=== PATIENT | male | born 1995 ===

== ENCOUNTER 2018-07-23 14:30 | Emergency (ER) | payer BC ==
[2018-07-23 14:54] VITALS: BP 142/76; PULSE 92; RESP 18; TEMP 98.2; O2SAT 98
--- NOTE | 2018-07-23 15:10 | ED PDOC ---
HPI: Male Pain Time Seen by Provider: 07/23/18 14:59 Chief Complaint (Nursing): Male Genitourinary Chief Complaint (Provider): testicle pain History Per: Patient History/Exam Limitations: no limitations Onset/Duration Of Symptoms: Days Current Symptoms Are (Timing): Still Present Additional Complaint(s): Pt. with testicle pain right that was present when pt. woke up at 730am. Pt. with no dysuria, weakness, abd pain, injury. States no issues when he went to bed. Seen at urgent care and sent to the ER. Past Medical History Reviewed: Nursing Documentation, Vital Signs Vital Signs: Last Vital Signs Temp 98.2 F 07/23/18 14:52 Pulse 92 H 07/23/18 14:52 Resp 18 07/23/18 14:52 BP 142/76 07/23/18 14:52 Pulse Ox 98 07/23/18 14:52 Primary Care Provider: DoctorEdmar - Medical History PMH: No Chronic Diseases - Surgical History Surgical History: No Surg Hx - Family History Family History: States: Unknown Family Hx - Social History Alcohol: None Drugs: Denies - Home Medications Home Medications: Ambulatory Orders Medication Instructions Recorded Ibuprofen [Motrin] 600 mg PO TID 7 Days tab 07/23/18 - Allergies Allergies/Adverse Reactions: Allergies Allergy/AdvReac Type Severity Reaction Status Date / Time No Known Allergies Allergy Verified 07/23/18 14:52 Review of Systems ROS Statement: Except As Marked, All Systems Reviewed And Found Negative Genitourinary Male: Positive for: Scrotal Pain Physical Exam - Reviewed Nursing Documentation Reviewed: Yes Vital Signs Reviewed: Yes - Physical Exam Appears: Positive for: Non-toxic, No Acute Distress Head Exam: Positive for: ATRAUMATIC, NORMAL INSPECTION, NORMOCEPHALIC Skin: Positive for: Normal Color, Warm, DRY Cardiovascular/Chest: Positive for: Regular Rate, Rhythm Respiratory: Positive for: CNT, Normal Breath Sounds Gastrointestinal/Abdominal: Positive for: Normal Exam, Soft. Negative for: Tenderness Male Genital Exam: Positive for: other (no penile lesions or tenderness; no scrotal sac erythema; + cremasteric reflex b/l). Negative for: epididymal tenderness, scrotum tenderness (R), scrotum tenderness (L), testicular tenderness (R), testicular tenderness (L) Back: Positive for: Normal Inspection. Negative for: L CVA Tenderness, R CVA Tenderness Neurological/Psych: Positive for: Awake, Alert, Normal Tone - ECG O2 Sat by Pulse Oximetry: 98 - CT Scan/US US Other Rad Studies (CT/US): Read By Radiologist - Progress ED Course And Treament: 1700: Stable. AAOx3. Pain free. Tolerated PO. Fu with pcp. Disposition - Clinical Impression Clinical Impression: Testicle pain - Patient ED Disposition Is Patient to be Admitted: No Counseled Patient/Family Regarding: Studies Performed, Diagnosis, Need For Followup, Rx Given - Disposition Referrals: [facility] [Outside] - 07/26/18 Disposition: Routine/Home Disposition Time: 17:01 Condition: STABLE Additional Instructions: Return if not better in 3 days. Prescriptions: Ibuprofen [Motrin] 600 mg PO TID 7 Days tab Instructions: How to Perform a Testicular Self-Exam Forms: [facility] ED School/Work Excuse
--- NOTE | 2018-07-23 16:25 | US ---
Date of service: 07/23/2018 HISTORY: testicular pain TECHNIQUE: Realtime sonography through the scrotum with color and doppler flow. COMPARISON: None Available. FINDINGS: RIGHT TESTICLE: Measures 2.4 x 3.6 x 5.1 cm. Normal echotexture and flow. RIGHT EPIDIDYMIS: Epididymal head measures 0.7 x 0.9 x 1.3 cm. Simple epididymal cyst 5 x 7 x 5 mm. LEFT TESTICLE: Measures 2.8 x 3.1 x 5.1 cm. Normal echotexture and flow. LEFT EPIDIDYMIS: Epididymal head measures 0.5 x 0.7 x 1.4 cm. Grossly unremarkable appearance with normal flow. HYDROCELE: None. VARICOCELE: None. OTHER FINDINGS: None. IMPRESSION: Negative study for epididymitis, orchitis, torsion or testicular mass.
== END 2018-07-23 17:20 | disposition home or self-care (01) ==
LOC: H.ER 14:30
DX: N50.811 Right testicular pain (principal)